=== PATIENT | female | born 1955 ===

== ENCOUNTER 2022-08-16 09:33 | Outpatient (CLI) | payer OTHER | END 2022-08-16 09:34 | disposition home or self-care (01) | LOC: CSHMAMMO 09:33 | PROVIDERS: ATTEND Student in an Organized Health Care Education/Training Program | DX: Z12.31 Encounter for screening mammogram for malignant neoplasm of breast (principal); Z80.3 Family history of malignant neoplasm of breast; Z91.89 Other specified personal risk factors, not elsewhere classified | CPT/HCPCS: 77063; 77067 ==